=== PATIENT | female | born 1960 | race Caucasian/White ===

== ENCOUNTER 2020-06-13 07:53 | Day surgery (SDC) | payer BC ==
[~2020-06-13 07:53] MED LIST: Lactated Ringers 1,000 ML IV SCH; Lidocaine 1%/Sod Bicarbonate in NS 8.4% 1 ML Syringe IDERM PRN; Sodium Chloride 0.9% 10 ML Syringe FLUSH PRN
[2020-06-13] MEDS ORDERED: FLU VACC QS2020-21(6MOS UP)/PF 60 MCG/0.5 ML SYRINGE IM ONE (08:30)
[2020-06-13] MEDS ORDERED: Lidocaine 1% 4 ML ONE (08:33)
[2020-06-13] MEDS ORDERED: Propofol 200 MG/20 ML SDV ONE (08:33)
--- NOTE | 2020-06-13 09:05 | PCM.PREANE ---
Preanesthetic Assessment - Procedure Proposed Procedure: Screening Colonoscopy - Anesthesia/Transfusion/Family Hx Anesthesia History: Prior Anesthesia Without Reaction Family History of Anesthesia Reaction: No - Review of Systems General: No Symptoms Pulmonary: No Symptoms Cardiovascular: No Symptoms (Chest pain 1 year ago with negative cardiac workup. No symptoms of chest pain since that episode. ) Gastrointestinal: Diarrhea, Other (GERD) Neurological: Pre-Existing Deficit (Lumbar back pain from an injury years ago. ) Other: Reports: None (Restless legs syndrome), Depression (Insomnia) - Physical Assessment NPO Status Date: 06/13/20 NPO Status Time: 00:00 Vital Signs: Last Vital Signs Temp 36.9 C 06/13/20 07:50 Pulse 76 06/13/20 07:50 Resp 16 06/13/20 07:50 BP 130/75 06/13/20 07:50 Pulse Ox 98 06/13/20 07:50 Height: 1.7 m Weight: 56.699 kg ASA Class: 2 Mental Status: Alert & Oriented x3 Airway Class: Mallampati = 2 Dentition: Reports: Pharr(s), Bridge (Lower right) Thyro-Mental Finger Breadths: 2 Mouth Opening Finger Breadths: 3 ROM/Head Extension: Full Lungs: Clear to Auscultation, Normal Respiratory Effort Cardiovascular: Regular Rate, Regular Rhythm, Murmurs - Allergies Allergies/Adverse Reactions: Allergies Allergy/AdvReac Type Severity Reaction Status Date / Time Penicillins Allergy Hives Verified 06/12/20 14:49 - Acknowledgements Anesthesia Type Planned: MAC Pt an Appropriate Candidate for the Planned Anesthesia: Yes Alternatives and Risks of Anesthesia Discussed w Pt/Guardian: Yes Pt/Guardian Understands and Agrees with Anesthesia Plan: Yes PreAnesthesia Questionnaire HEENT History: Reports: Allergic Rhinitis Cardiovascular History: Reports: Other (See Below) Other Cardiovascular History: chest pain, murmur Respiratory History: Reports: None Gastrointestinal History: Reports: Chronic Diarrhea, Other (See Below) Other Gastrointestinal History: heartburn Genitourinary History: Reports: Renal Calculus, Urinary Incontinence RESEARCH 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: Reports: 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 Musculoskeletal History: Reports: Back Pain, Chronic, Other (See Below) Other Musculoskeletal History: restless leg syndrome Neurological History: Reports: None Psychiatric History: Reports: Depression, Other (See Below) Other Psychiatric History: insomnia Other Endocrine/Metabolic History: abnormal TSH Hematologic History: Reports: Anemia Immunologic History: Reports: None Oncologic (Cancer) History: Reports: None Other Dermatologic History: skin lesions - Past Surgical History Head Surgeries/Procedures: Reports: None HEENT Surgical History: Reports: Cataract Surgery, Naso-Sinus Surgery Cardiovascular Surgical History: Reports: None Respiratory Surgical History: Reports: None GI Surgical History: Reports: Colonoscopy Female Surgical History: Reports: Breast Biopsy, Lithotripsy/ESWL, Tubal Ligation Male Surgical History: Reports: None Endocrine Surgical History: Reports: None Neurological Surgical History: Reports: None Oncologic Surgical History: Reports: None - SUBSTANCE USE Tobacco Use Status *Q: Never Tobacco User Recreational Drug Use History: No - HOME MEDS Home Medications: Home Meds Ascorbic Acid/Collagen Hydr [Collagen Plus Vit C] 1 tab PO TID 04/03/18 [History] Calcium Carbonate/Vitamin D3 [Caltrate 600+D 1500 MG-400 Units] 1 tab PO DAILY 04/03/18 [History] Lactobacillus Combo No.10 [Probiotic] 1 cap PO DAILY 04/03/18 [History] Multivitamin [Multivitamins] 1 cap PO DAILY 04/03/18 [History] clonazePAM [Klonopin] 1 mg PO BEDTIME 04/03/18 [History] diphenhydrAMINE HCL [Nighttime Sleep Aid] 25 mg PO BEDTIME PRN 04/03/18 [History] Denosumab [Prolia] 60 mg SQ ASDIRECTED 06/12/20 [History] Diphenoxylate HCl/Atropine [Diphenoxylate-Atrop 2.5-0.025] 1 tab PO ASDIRECTED PRN 06/12/20 [History] Loperamide HCl [Imodium A-D] 2 mg PO ASDIRECTED PRN 06/12/20 [History] Lutein 6 mg PO DAILY 06/12/20 [History] Sertraline [Zoloft] 100 mg PO DAILY 06/12/20 [History] Zolpidem Tartrate [Ambien] 5 mg PO BEDTIME PRN 06/12/20 [History] - CURRENT (IN HOUSE) MEDS Current Meds: Current Medications Lactated Ringer's (Ringers, Lactated) 1,000 mls @ 125 mls/hr IV ASDIRECTED [place] Stop: 06/13/20 23:00 Last Admin: 06/13/20 08:05 Dose: 125 mls/hr Documented by: Lidocaine/Sodium Bicarbonate (Buffered Lidocaine 1% In Ns 8.4%) 0.25 ml IDERM ONETIME PRN PRN Reason: Prior to IV Start Stop: 06/13/20 18:00 Sodium Chloride (Saline Flush) 10 ml FLUSH ASDIRECTED PRN PRN Reason: Keep Vein Open Stop: 06/13/20 18:00 Discontinued Medications Lidocaine HCl (Xylocaine-Mpf 1%) Confirm Administered Dose 4 mls @ as directed .ROUTE .STK-MED ONE Stop: 06/13/20 08:34 Influenza Virus Vaccine (Pharmacy To Dose - Influenza Vaccine) 1 each IM ONETIME [place] Influenza Virus Vaccine (Fluzone Quad Syringe) 60 mcg IM .ONCE ONE Stop: 06/13/20 08:31 Last Admin: 06/13/20 08:16 Dose: 60 mcg Documented by: Propofol (Diprivan 20 Ml) Confirm Administered Dose 400 mg .ROUTE .STK-MED ONE Stop: 06/13/20 08:34
--- NOTE | 2020-06-13 10:00 | PCM.PRNOTE ---
- Free Text/Narrative Note: Date: 06/13/2020 Procedure: screening colonoscopy Endoscopist: Forest Florentino MD Findings: Cecum reached with colonoscope. Prep was excellent. No polyps identified. Minor hemorrhoidal disease. Detailed Report: The patient was taken to the endoscopy suite and placed in left lateral decubitus position. Time out was performed and monitored anesthesia care was initiated. Visual inspection of the anus revealed no abnormality. Digital rectal exam was unremarkable except for low sphincter tone. The lubricated colonoscope was then inserted and advanced all the way to the cecum. The ileocecal valve and appendiceal orifice were visualized. The prep was excellent. On slow withdrawal of the scope, mucosal surfaces were carefully inspected. No polyps were identified. No diverticular disease noted. There were mildly prominent internal hemorrhoidal columns. Air was suctioned prior to removal of the scope. The [place] ent tolerated the procedure well.
--- NOTE | 2020-06-13 10:04 | PCM48HPAN ---
Post Anesthesia Note - EVALUATION WITHIN 48HRS OF ANESTHETIC Vital Signs in Normal Range: Yes Patient Participated in Evaluation: Yes Respiratory Function Stable: Yes Airway Patent: Yes Cardiovascular Function Stable: Yes Hydration Status Stable: Yes Pain Control Satisfactory: Yes Nausea and Vomiting Control Satisfactory: Yes Mental Status Recovered: Yes Vital Signs: Last Vital Signs Temp 36.9 C 06/13/20 07:50 Pulse 76 06/13/20 07:50 Resp 16 06/13/20 07:50 BP 130/75 06/13/20 07:50 Pulse Ox 98 06/13/20 07:50
== END 2020-06-13 10:40 | disposition home or self-care (01) ==
LOC: JD.SDS 07:53
PROVIDERS: ATTEND Surgery
DX: R19.7 Diarrhea, unspecified (principal); K64.9 Unspecified hemorrhoids; F32.9 Major depressive disorder, single episode, unspecified; G47.00 Insomnia, unspecified; M81.0 Age-related osteoporosis without current pathological fracture; K21.9 Gastro-esophageal reflux disease without esophagitis; G25.81 Restless legs syndrome; Z88.0 Allergy status to penicillin; Z79.899 Other long term (current) drug therapy
CPT/HCPCS: 45378; 90471; 90686; J2001; J2704; J7120; 00812; G0008

== ENCOUNTER 2020-12-21 07:36 | Day surgery (SDC) | payer BC ==
--- NOTE | 2020-12-21 08:16 | PCM.PREANE ---
Preanesthetic Assessment - Procedure Proposed Procedure: Diagnostic EGD - Anesthesia/Transfusion/Family Hx Anesthesia History: Prior Anesthesia Without Reaction Family History of Anesthesia Reaction: No Transfusion History: No Prior Transfusion(s) - Review of Systems General: No Symptoms Pulmonary: No Symptoms Cardiovascular: No Symptoms Gastrointestinal: Abdominal Pain Neurological: No Symptoms Other: Reports: None - Physical Assessment NPO Status Date: 12/20/20 NPO Status Time: 00:00 Height: 1.7 m Weight: 71.3 kg ASA Class: 2 Mental Status: Alert & Oriented x3 Dentition: Reports: Implants (right lower) Thyro-Mental Finger Breadths: 3 Mouth Opening Finger Breadths: 3 ROM/Head Extension: Full Lungs: Clear to Auscultation, Normal Respiratory Effort Cardiovascular: Regular Rate, Regular Rhythm - Allergies Allergies/Adverse Reactions: Allergies Allergy/AdvReac Type Severity Reaction Status Date / Time Penicillins Allergy Hives Verified 12/20/20 13:18 - Blood Blood Available: No Product(s) Available: None - Anesthesia Plan Pre-Op Medication Ordered: None - Acknowledgements Anesthesia Type Planned: MAC Pt an Appropriate Candidate for the Planned Anesthesia: Yes Alternatives and Risks of Anesthesia Discussed w Pt/Guardian: Yes Pt/Guardian Understands and Agrees with Anesthesia Plan: Yes PreAnesthesia Questionnaire HEENT History: Reports: Allergic Rhinitis Cardiovascular History: Reports: Heart Murmur, Other (See Below) Other Cardiovascular History: chest pain, murmur Respiratory History: Reports: None Gastrointestinal History: Reports: Chronic Diarrhea, Other (See Below) Other Gastrointestinal History: heartburn, abdominal pain, diarrhea, elevated LFTs, gastritis Genitourinary History: Reports: Renal Calculus, Urinary Incontinence 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: 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: 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 Musculoskeletal History: Reports: Back Pain, Chronic, Other (See Below) Other Musculoskeletal History: restless leg syndrome Neurological History: Reports: None Psychiatric History: Reports: Depression, Other (See Below) Other Psychiatric History: insomnia Other Endocrine/Metabolic History: abnormal TSH Hematologic History: Reports: Anemia Immunologic History: Reports: None Oncologic (Cancer) History: Reports: None Other Dermatologic History: skin lesions - Past Surgical History Head Surgeries/Procedures: Reports: None HEENT Surgical History: Reports: Cataract Surgery, Naso-Sinus Surgery Cardiovascular Surgical History: Reports: None Respiratory Surgical History: Reports: None GI Surgical History: Reports: Colonoscopy Female Surgical History: Reports: Breast Biopsy, Lithotripsy/ESWL, Tubal Ligation Male Surgical History: Reports: None Endocrine Surgical History: Reports: None Neurological Surgical History: Reports: None Oncologic Surgical History: Reports: None Dermatological Surgical History: Reports: None - SUBSTANCE USE Tobacco Use Status *Q: Never Tobacco User Tobacco Use Within Last Twelve Months: No Second Hand Smoke Exposure: No Days Per Week of Alcohol Use: 1 Number of Drinks Per Day: 0 Total Drinks Per Week: 0 Recreational Drug Use History: No - HOME MEDS Home Medications: Home Meds Calcium Carbonate/Vitamin D3 [Caltrate 600+D 1500 MG-400 Units] 1 tab PO DAILY 04/03/18 [History] Lactobacillus Combo No.10 [Probiotic] 1 cap PO DAILY 04/03/18 [History] Multivitamin [Multivitamins] 1 cap PO DAILY 04/03/18 [History] clonazePAM [Klonopin] 1 mg PO BEDTIME 04/03/18 [History] diphenhydrAMINE HCL [Nighttime Sleep Aid] 25 mg PO BEDTIME PRN 04/03/18 [History] Lutein 6 mg PO DAILY 06/12/20 [History] Zolpidem Tartrate [Ambien] 5 mg PO BEDTIME PRN 06/12/20 [History] Ascorbic Acid/Collagen Hydr [Collagen Plus Vit C] 1 tab PO BID 06/27/20 [History] Escitalopram Oxalate [Lexapro] 20 mg PO DAILY 12/20/20 [History] Omeprazole 40 mg PO DAILY 12/20/20 [History] - CURRENT (IN HOUSE) MEDS Current Meds: Current Medications Lactated Ringer's (Ringers, Lactated) 1,000 mls @ 125 mls/hr IV ASDIRECTED [place] Stop: 12/21/20 23:00 Lidocaine/Sodium Bicarbonate (Lidocaine 1%/Sod Bicarbonate In Ns 8.4% 1 Ml Syringe) 0.25 ml IDERM ONETIME PRN PRN Reason: Prior to IV Start Stop: 12/21/20 18:00 Sodium Chloride (Sodium Chloride 0.9% 10 Ml Syringe) 10 ml FLUSH ASDIRECTED PRN PRN Reason: Keep Vein Open Stop: 12/21/20 18:00
[2020-12-21] MEDS ORDERED: Ketamine 500 mg/10 ML MDV ONE (08:22)
[2020-12-21] MEDS ORDERED: Lidocaine 1% 6 ML ONE (08:22)
[2020-12-21] MEDS ORDERED: Propofol 200 MG/20 ML SDV ONE ×2 (08:23→08:27)
[2020-12-21] MEDS ORDERED: fentaNYL 100 MCG/2 ML SDV ONE (08:27)
--- NOTE | 2020-12-21 08:36 | PCM48HPAN ---
Post Anesthesia Note - EVALUATION WITHIN 48HRS OF ANESTHETIC Vital Signs in Normal Range: Yes Patient Participated in Evaluation: Yes Respiratory Function Stable: Yes Airway Patent: Yes Cardiovascular Function Stable: Yes Hydration Status Stable: Yes Pain Control Satisfactory: Yes Nausea and Vomiting Control Satisfactory: Yes Mental Status Recovered: Yes
[2020-12-21] MEDS ORDERED: Midazolam 1 MG/ML 2 ML SDV ONE (08:47)
--- NOTE | 2020-12-21 09:09 | PCM.PRNOTE ---
- Free Text/Narrative Note: Date: 12/21/2020 Procedure: diagnostic esophagogastroduodenoscopy Indication: history of peptic ulcer disease, now with bloating Endoscopist: Forest Florentino MD Findings: no abnormal findings. Detailed Report: The patient was taken to the endoscopy suite and placed in left lateral decubitus position. Timeout was performed and monitored anesthesia care was initiated. A bite-block was placed and the endoscope was inserted into the mouth. The scope was advanced to the distal duodenum with ease. Duodenal mucosa appeared normal. A sample mucosal biopsy was obtained with cold forceps. The scope was then withdrawn into the stomach. The stomach all appeared normal. A biopsy with cold forceps was obtained to sample antral mucosa. No hiatal hernia was noted. The scope was withdrawn into the distal esophagus. The Z-line appeared normal. A biopsy of distal esophageal mucosa was obtained. Air was suctioned from the stomach prior to withdrawal of the scope. The patient tolerated the procedure well.
--- NOTE | 2020-12-21 09:29 | PCM48HPAN ---
Post Anesthesia Note - EVALUATION WITHIN 48HRS OF ANESTHETIC Vital Signs in Normal Range: Yes Patient Participated in Evaluation: Yes Respiratory Function Stable: Yes Airway Patent: Yes Cardiovascular Function Stable: Yes Hydration Status Stable: Yes Pain Control Satisfactory: Yes Nausea and Vomiting Control Satisfactory: Yes Mental Status Recovered: Yes Vital Signs: Last Vital Signs Temp 36.3 C 12/21/20 09:11 Pulse 62 12/21/20 09:11 Resp 14 12/21/20 09:11 BP 119/70 12/21/20 09:11 Pulse Ox 95 12/21/20 09:11 - COMMENTS/OBSERVATIONS Free Text/Narrative:: no anesthesia complications noted
== END 2020-12-21 09:40 | disposition home or self-care (01) ==
LOC: JD.SDS 07:36
PROVIDERS: ATTEND Surgery
DX: R10.13 Epigastric pain (principal); R14.0 Abdominal distension (gaseous); K31.89 Other diseases of stomach and duodenum; K22.8 Other specified diseases of esophagus; Z87.11 Personal history of peptic ulcer disease; M81.0 Age-related osteoporosis without current pathological fracture; Z88.0 Allergy status to penicillin; Z88.8 Allergy status to other drugs, medicaments and biological substances; Z79.899 Other long term (current) drug therapy
CPT/HCPCS: 43239; J2250; J2704; J7120; 00731; J3010

== ENCOUNTER 2021-08-25 16:06 | Emergency (ER) | payer BC ==
[2021-08-25] MEDS ORDERED: Sodium Chloride 0.9% 10 ML Syringe FLUSH PRN (16:29)
[2021-08-25] MEDS ORDERED: Propofol 200 MG/20 ML SDV IVPUSH ONE (16:30)
--- NOTE | 2021-08-25 16:35 | EDM.PDOC ---
<Mk Meneses - Last Filed: 08/25/21 17:19> ED HPI GENERAL MEDICAL PROBLEM - General Chief Complaint: Upper Extremity Injury/Pain Stated Complaint: L WRIST INJURY Time Seen by Provider: 08/25/21 16:21 - Related Data Allergies Allergy/AdvReac Type Severity Reaction Status Date / Time Penicillins Allergy Hives Verified 08/25/21 16:23 Home Meds: Home Meds Calcium Carbonate/Vitamin D3 [Caltrate 600+D 1500 MG-400 Units] 1 tab PO DAILY 04/03/18 [History] Lactobacillus Combo No.10 [Probiotic] 1 cap PO DAILY 04/03/18 [History] Multivitamin [Multivitamins] 1 cap PO DAILY 04/03/18 [History] clonazePAM [Klonopin] 1 mg PO BEDTIME 04/03/18 [History] diphenhydrAMINE HCL [Nighttime Sleep Aid] 25 mg PO BEDTIME PRN 04/03/18 [History] Lutein 6 mg PO DAILY 06/12/20 [History] Zolpidem Tartrate [Ambien] 5 mg PO BEDTIME PRN 06/12/20 [History] Ascorbic Acid/Collagen Hydr [Collagen Plus Vit C] 1 tab PO BID 06/27/20 [History] Escitalopram Oxalate [Lexapro] 20 mg PO DAILY 12/20/20 [History] Omeprazole 40 mg PO DAILY 12/20/20 [History] Hydrocodone/Acetaminophen [HYDROcodone-Acetaminophen 5-325 MG] 1 each PO Q6H PRN #20 tablet 08/25/21 [Rx] ED PROCEDURAL SEDATION - Pre Procedure Indications: fracture reduction Preparations: procedure explained, consent signed, oxygen, continuous pulse oximeter, continuous night monitor, constant attendance - Physical Exam Airway: normal anatomy Cardiovascular: normal heart sounds Respiratory: normal breath sounds Neurological: alert, responsive, NAD Mallampati Classification: 1 (soft palate, anterior/posterior tonsillar pillars, uvula visible) - Procedure Sedation Procedural Sedation Start Date: 08/25/21 Procedural Sedation Start Time: 17:05 Sedation: propofol ASA Classification: 1 (Normal healthy patient) - Intra Procedure Condition during procedure: moderately sedated Complications: none Reversal: none - Post Procedure Procedural Sedation End Date: 08/25/21 Procedural Sedation End Time: 17:15 Condition after procedure: alert, NAD, responds to verbal stimuli - Discharge Condition Patient returned to pre-procedure baseline: Yes Alert prior to discharge: Yes Ambulatory with assistance: Yes Vital signs normal: Yes Time spent with sedated patient: 20 min Departure - Departure Disposition: Home, Self-Care 01 Clinical Impression: Left wrist fracture Qualifiers: Encounter type: initial encounter Fracture type: closed Qualified Code(s): S62.102A - Fracture of unspecified carpal bone, left wrist, initial encounter for closed fracture - Discharge Information Prescriptions: Hydrocodone/Acetaminophen [HYDROcodone-Acetaminophen 5-325 MG] 1 each PO Q6H PRN #20 tablet PRN Reason: Pain Instructions: Wrist Fracture Treated With Immobilization, [id number], Moderate Conscious Sedation, Adult, Care After, Closed Reduction for Wrist or Forearm Referrals: Jerilyn Colon NP [Primary Care Provider] - Lauro Mccray MD [Physician] - Forms: ED Department Discharge Additional Instructions: You have been evaluated in the ED for your left wrist fracture. Your x-ray demonstrated a fracture of your left wrist, that did not need reduction, that was performed in the ER. Postreduction films did demonstrate that the fracture was set in a more anatomical position, which should be more conducive to appropriate healing process. Please use ice as tolerated to the affected area. You may elevate the affected area to provide further relief from swelling. You may take Tylenol 500 mg or ibuprofen 600mg q6 hrs for pain relief. Please do so until you have a tolerable level of pain with activity. Do not exceed 4000mg Tylenol, Do not exceed 3200mg ibuprofen in a 24 hour time period. You were given a prescription for a strong pain medication, hydrocodone/acetaminophen 5/325, please take 1 tab every 6 hours as needed for pain not relieved by Tylenol or ibuprofen alone. Please note this does contain Tylenol in it, so do not take more than 4000 mg in a 24-hour time span. These medications can be addictive, so please take as few as possible to achieve adequate pain control. These meds can also be quite constipating, recommend that you increase your oral fluid intake and take a stool softener like MiraLAX while taking these medications. This medication was electronically sent to the [place] [facility]. Please call Ortho for follow-up and further evaluation Dr. Mccray is our [facility] surgeon, his office number is [phone]. Please call and set up an appointment as soon as possible for further management. His office might need to refer you to [facility], if you should need surgery in the next week or so for ongoing management. Please return to ED if your symptoms should change or worsen. <Christa Ng V - Last Filed: 08/25/21 18:39> ED HPI GENERAL MEDICAL PROBLEM - General Source of Information: Reports: Patient, RN Notes Reviewed History Limitations: Reports: No Limitations - History of Present Illness INITIAL COMMENTS - FREE TEXT/NARRATIVE: Patient is a 61-year-old female who presents to the ER for a left wrist injury. Patient states she was ice skating earlier today, fell and hurt her left wrist. There is a visible deformity in the left wrist she went to the walk-in clinic had x-rays confirmed it was broken, and did need some reduction. Patient has no numbness or tingling distal to the injury. She can still wiggle her fingers but states it somewhat painful. Good pulses are palpable. Patient denies any other sick-like symptoms, fever/chills, cough/shortness of breath, nausea/vomiting/diarrhea. Left Hand Pain Score (Numeric/FACES): 7 Past Medical History HEENT History: Reports: Allergic Rhinitis Cardiovascular History: Reports: Other (See Below) Other Cardiovascular History: chest pain, murmur Gastrointestinal History: Reports: Chronic Diarrhea, Other (See Below) Other Gastrointestinal History: heartburn Genitourinary History: Reports: Renal Calculus, Urinary Incontinence Musculoskeletal History: Reports: Back Pain, Chronic, Other (See Below) Other Musculoskeletal History: restless leg syndrome Psychiatric History: Reports: Depression, Other (See Below) Other Psychiatric History: insomnia Endocrine/Metabolic History: Reports: Other (See Below) Other Endocrine/Metabolic History: abnormal TSH Hematologic History: Reports: Anemia Dermatologic History: Reports: Other (See Below) Other Dermatologic History: skin lesions - Infectious Disease History Infectious Disease History: Reports: Novel Coronavirus - Past Surgical History HEENT Surgical History: Reports: Cataract Surgery, Naso-Sinus Surgery GI Surgical History: Reports: Colonoscopy Female Surgical History: Reports: Breast Biopsy, Lithotripsy/ESWL, Tubal Ligation Social & Family History - Tobacco Use Tobacco Use Status *Q: Never Tobacco User Second Hand Smoke Exposure: No - Caffeine Use Caffeine Use: Reports: Coffee - Recreational Drug Use Recreational Drug Use: No Review of Systems - Review of Systems Review Of Systems: Comprehensive ROS is negative, except as noted in HPI. ED EXAM, GENERAL - Physical Exam Exam: See Below Exam Limited By: No Limitations General Appearance: Alert, WD/WN, No Apparent Distress Respiratory/Chest: No Respiratory Distress, Lungs Clear, Normal Breath Sounds, No Accessory Muscle Use, Chest Non-Tender Cardiovascular: Normal Peripheral Pulses, Regular Rate, Rhythm, No Edema Peripheral Pulses: 2+: Radial (L), Radial (R) Extremities: Normal Capillary Refill, Limited Range of Motion (of left hand d/t wrist fracture) Neurological: Alert, Oriented, Normal Cognition, No Motor/Sensory Deficits Psychiatric: Normal Affect, Normal Mood Skin Exam: Warm, Dry, Intact, Normal Color, No Rash ED TRAUMA EXTREMITY PROCEDURES - Joint Reduction Left Wrist Sedation: Conscious Sedation Pre-Procedure NV Status: Normal Post-Procedure NV Status: Normal Technique: Traction/Counter Traction Number of Attempts: 1 Post-Reduction Imaging: Acceptably Reduced, Fracture Seen (this was apparent on initial films, wrist was displaced- needed fracture reduction) Joint Reduction Complications: No - Splinting Left Upper Extremity Splint Site: left wrist Pre-Procedure NV Status: Normal Post-Procedure NV Status: Normal Splint Material: Fiberglass Splint Design: Gutter (ulnar gutter short arm) Applied & Form Fitted By: Provider, Nurse Provider Post-Splint Application NV Check: NV Status Normal, Good Position Complications: No Course - Vital Signs Last Recorded V/S: Last Vital Signs Temp 98.0 F 08/25/21 16:21 Pulse 77 08/25/21 16:21 Resp 18 08/25/21 16:21 BP 143/71 H 08/25/21 16:21 Pulse Ox 100 08/25/21 16:21 - Orders/Labs/Meds Orders: Active Orders 24 hr Category Date Time Status Collin Level 1 Score [RC] ASDIRECTED Care 08/25/21 17:09 Active Collin Level 2 Score [RC] ASDIRECTED Care 08/25/21 17:09 Active Moderate Sedation Record [RC] ASDIRECTED Care 08/25/21 17:09 Active Perioperative Phase II Documentation [RC] ASDIRECTED Care 08/25/21 17:09 Active Peripheral IV Care [RC] . DIRECTED Care 08/25/21 16:30 Active Peripheral IV Care [RC] . DIRECTED Care 08/25/21 17:09 Active Preprocedural Sedation Assessment [RC] ASDIRECTED Care 08/25/21 17:09 Active Procedural Sedation w/Reflex [OM.PC] Routine Care 08/25/21 17:09 Ordered Sleep Apnea Risk Assessment [RC] ASDIRECTED Care 08/25/21 17:09 Active Time Out Procedure [RC] ASDIRECTED Care 08/25/21 17:09 Active Verify Patient Consent Obtain [RC] ASDIRECTED Care 08/25/21 16:55 Active Wrist 2V Lt [CR] Stat Exams 08/25/21 17:15 Taken Sodium Chloride 0.9% [Saline Flush] Med 08/25/21 16:29 Active 10 ml FLUSH ASDIRECTED PRN DME for Discharge [COMM] Routine Oth 08/25/21 18:30 Ordered Peripheral IV Insertion Adult [OM.PC] Routine Oth 08/25/21 16:30 Ordered Medication Orders Sodium Chloride (Sodium Chloride 0.9% 10 Ml Syringe) 10 ml FLUSH ASDIRECTED PRN PRN Reason: Keep Vein Open Last Admin: 08/25/21 17:05 Dose: 10 ml Documented by: CONCEPCIÓN Meds: Medications Generic Name Dose Route Start Last Admin Trade Name Freq PRN Reason Stop Dose Admin Sodium Chloride 10 ml 08/25/21 16:29 08/25/21 17:05 Sodium Chloride 0.9% 10 Ml Syringe FLUSH 10 ml ASDIRECTED PRN Administration Keep Vein Open Discontinued Medications Generic Name Dose Route Start Last Admin Trade Name Freq PRN Reason Stop Dose Admin Propofol 120 mg 08/25/21 16:30 08/25/21 17:05 Propofol 200 Mg/20 Ml Sdv IVPUSH 08/25/21 16:31 120 mg ONETIME ONE Administration - Re-Assessments/Exams Free Text/Narrative Re-Assessment/Exam: 08/25/21 16:33 Patient presents to the ER for evaluation of her wrist fracture/needing reduction. Dr. Meneses will perform conscious sedation for me with IV propofol, we will go ahead and do the reduction in the ER get the patient splinted up and get her going home. They were able to push the x-rays here, on the lateral films; the patient does have dorsal displacement that will need reduction of the fracture for appropriate healing. 08/25/21 17:43 Post x-ray films do demonstrate improvement of the dorsal displacement, almost to near anatomic position. There is however some radial displacement of the distal radius. Patient was made aware of this, she states she will follow up with orthopedics. Departure - Departure Time of Disposition: 16:37 Condition: Good - Discharge Information *PRESCRIPTION DRUG MONITORING PROGRAM REVIEWED*: Yes *COPY OF PRESCRIPTION DRUG MONITORING REPORT IN PATIENT MARLON: No Sepsis Event Note (ED) - Focused Exam Vital Signs: Vital Signs Temp Pulse Resp BP Pulse Ox 08/25/21 16:21 98.0 F 77 18 143/71 H 100 - My Orders Last 24 Hours: My Active Orders 08/25/21 16:29 Sodium Chloride 0.9% [Saline Flush] 10 ml FLUSH ASDIRECTED PRN 08/25/21 16:30 Peripheral IV Care [RC] . DIRECTED Peripheral IV Insertion Adult [OM.PC] Routine 08/25/21 16:55 Verify Patient Consent Obtain [RC] ASDIRECTED 08/25/21 17:09 Collin Level 1 Score [RC] ASDIRECTED Collin Level 2 Score [RC] ASDIRECTED Moderate Sedation Record [RC] ASDIRECTED Perioperative Phase II Documentation [RC] ASDIRECTED Peripheral IV Care [RC] . DIRECTED Preprocedural Sedation Assessment [RC] ASDIRECTED Procedural Sedation w/Reflex [OM.PC] Routine Sleep Apnea Risk Assessment [RC] ASDIRECTED Time Out Procedure [RC] ASDIRECTED 08/25/21 17:15 Wrist 2V Lt [CR] Stat 08/25/21 18:30 DME for Discharge [COMM] Routine - Assessment/Plan Last 24 Hours: My Active Orders 08/25/21 16:29 Sodium Chloride 0.9% [Saline Flush] 10 ml FLUSH ASDIRECTED PRN 08/25/21 16:30 Peripheral IV Care [RC] . DIRECTED Peripheral IV Insertion Adult [OM.PC] Routine 08/25/21 16:55 Verify Patient Consent Obtain [RC] ASDIRECTED 08/25/21 17:09 Collin Level 1 Score [RC] ASDIRECTED Collin Level 2 Score [RC] ASDIRECTED Moderate Sedation Record [RC] ASDIRECTED Perioperative Phase II Documentation [RC] ASDIRECTED Peripheral IV Care [RC] . DIRECTED Preprocedural Sedation Assessment [RC] ASDIRECTED Procedural Sedation w/Reflex [OM.PC] Routine Sleep Apnea Risk Assessment [RC] ASDIRECTED Time Out Procedure [RC] ASDIRECTED 08/25/21 17:15 Wrist 2V Lt [CR] Stat 08/25/21 18:30 DME for Discharge [COMM] Routine
--- NOTE | 2021-08-27 09:07 | CR ---
EXAM: XR WRIST 2 VIEWS LEFT LOCATION: [facility] [place] DATE/TIME: 08/25/2021 5:39 PM INDICATION: Wrist pain. COMPARISON: None. IMPRESSION: No significant fluid to demonstrate a comminuted mildly displaced fracture of the distal left radius without significant angulation of the distal fracture fragment or resulting radial foreshortening. No fracture of the tip of the ulnar styloid process. SIGNED BY: Vaibhav Bañuelos MD 08/25/2021 7:08 PM [id number]
== END 2021-08-25 18:45 | disposition home or self-care (01) ==
LOC: JD.ED 16:06
DX: S52.502A Unspecified fracture of the lower end of left radius, initial encounter for closed fracture (principal); D64.9 Anemia, unspecified; Z86.16 Personal history of COVID-19; Z88.0 Allergy status to penicillin; Z79.899 Other long term (current) drug therapy; V00.131A Fall from skateboard, initial encounter; Y93.21 Activity, ice skating
CPT/HCPCS: 25605; 73100; 99283; J2704

== ENCOUNTER 2023-03-26 16:56 | Emergency (ER) | payer BC ==
[2023-03-26 17:20] LABS: BASOPHILS ABSOLUTE AUTO 0.02 K/mm3 (0.01-0.08); BASOPHILS PERCENT AUTO 0.3 % (0.1-1.2); EOSINOPHILS ABSOLUTE AUTO 0.01 K/mm3 (0.04-0.36); EOSINOPHILS PERCENT AUTO 0.1 (0.7-5.8); HEMATOCRIT 42.8 % (34.1-44.9); HEMOGLOBIN 13.8 gm/dl (11.2-15.7); IMMATURE GRAN ABSOLUTE AUTO 0.01 K/mm3 (0.00-0.10); IMMATURE GRAN PERCENT AUTO 0.1 % (<=1.0); LYMPHOCYTES PERCENT AUTO 8.2 % (19.3-51.7); MEAN CORPUSCULAR HEMOGLOBIN 30.3 pg (25.6-32.2); MEAN CORPUSCULAR HGB CONC 32.2 g/dl (32.2-35.5); MEAN CORPUSCULAR VOLUME 93.9 fl (79.4-94.8); MEAN PLATELET VOLUME 10.9 fl (9.4-12.3); MONOCYTES ABSOLUTE AUTO 0.39 K/mm3 (0.24-0.36); MONOCYTES PERCENT AUTO 5.3 % (4.7-12.5); NEUTROPHILS ABSOLUTE AUTO 6.26 K/mm3 (1.56-6.13); PLATELET COUNT,PLT 247 K/mm3 (182-369); RED BLOOD CELL COUNT 4.56 M/mm3 (3.98-5.22); WHITE BLOOD CELL COUNT,WBC 7.29 K/mm3 (3.98-10.04)
[2023-03-26] MEDS ORDERED: Sodium Chloride 0.9% 1,000 ML IV ONE (17:20)
[2023-03-26] MEDS ORDERED: HYDROmorphone 0.5 MG/0.5 ML Syringe IVPUSH ONE (17:21)
[2023-03-26] MEDS ORDERED: Famotidine 20 MG/2 ML SDV IVPUSH ONE (17:21)
[2023-03-26] MEDS ORDERED: Ondansetron 4 MG/2 ML SDV IVPUSH ONE (17:21)
[2023-03-26] MEDS: Sodium Chloride 0.9% 10 ML Syringe FLUSH PRN ×2 (17:33→19:31)
[2023-03-26 17:40] LABS: INR 0.94; PROTHROMBIN TIME 10.1 SECONDS (9.7-12.0)
[2023-03-26 17:50] LABS: A/G RATIO 1.2 (1-2); ALBUMIN 4.1 g/dl (3.4-5.0); ANION GAP 14.1 (5-15); BILIRUBIN TOTAL 0.5 mg/dL (0.2-1.0); BUN/CREATININE RATIO 10.9 (14-18); CALCIUM 10.4 mg/dL (8.5-10.1); CREATININE 1.1 mg/dL (0.55-1.02); EST CRCL DRUG DOSING (CG) 49.58 mL/min; MAGNESIUM 2.1 mg/dL (1.8-2.4); POTASSIUM,K 4.1 mEq/L (3.5-5.1); PROTEIN TOTAL,TP 7.6 g/dl (6.4-8.2)
[2023-03-26] MEDS ORDERED: Iopamidol 612 MG/ML 100 ML Bottle IVPUSH ONE (19:28)
== END 2023-03-26 19:00 | disposition home or self-care (01) ==
LOC: JD.ED 16:56
DX: K29.00 Acute gastritis without bleeding (principal); K86.2 Cyst of pancreas; Z86.16 Personal history of COVID-19; Z88.0 Allergy status to penicillin; Z79.899 Other long term (current) drug therapy
CPT/HCPCS: 36415; 71045; 74177; 80053; 83690; 83735; 84484; 85025; 85610; 93005; 96361; 96374; 96375; 99285; J1170; J2405; J3490; J7030; Q9967; 93010; 99284